=== PATIENT | male | born 2000 | race Caucasian/White ===

== ENCOUNTER 2021-12-11 12:05 | Emergency (ER) | payer OTHER ==
[~2021-12-11] VITALS: Ht 180.3 cm; Wt 105.2 kg
[2021-12-11 12:26] VITALS: BP 140/74
--- NOTE | 2021-12-11 13:32 | NUR ---
PT AMBULATED TO BED 04.
[2021-12-11 13:41] LABS: BASOPHILS % (AUTO) 0.1 % (0.0-2.0); EOSINOPHILS # (AUTO) 0.1 K/uL (0-0.4); EOSINOPHILS % (AUTO) 0.7 % (0.0-4.0); HEMATOCRIT 44.4 % (36-52); HEMOGLOBIN 15.3 g/dL (12.0-18.0); LYMPHOCYTES # (AUTO) 1.4 K/uL (2.0-11.5); LYMPHOCYTES % (AUTO) 19.7 % (20.5-51.1); MEAN CORPUSCULAR HEMOGLOBIN 33 pg (27-31); MEAN CORPUSCULAR HGB CONC 34 g/dL (33-37); MEAN CORPUSCULAR VOLUME 94.8 fL (80-94); MONOCYTES # (AUTO) 0.5 K/uL (0.8-1.0); MONOCYTES % (AUTO) 7.4 % (1.7-9.3); NEUTROPHILS # (AUTO) 5.3 K/uL (1.8-7.7); NEUTROPHILS % (AUTO) 72.1 % (42.2-75.2); PLATELET COUNT (AUTO) 423 K/uL (140-450); RED BLOOD CELL COUNT(AUTO) 4.68 MIL/uL (4.20-6.10); RED CELL DISTRIBUTION WIDTH 14.5 % (11.6-13.7); WHITE BLOOD COUNT (AUTO) 7.3 K/uL (4.8-10.8)
--- NOTE | 2021-12-11 13:55 | NUR ---
DA specimen obtained, walked to lab. Handed to CPT. Shakeel
[2021-12-11 14:01] LABS: ALBUMIN 3.7 g/dL (3.4-5.0); ANION GAP 15.7 (8-16); POTASSIUM 3.7 mmol/L (3.5-5.1); TOTAL BILIRUBIN 0.7 mg/dL (0.0-1.0)
--- NOTE | 2021-12-11 14:03 | NUR ---
Walked urine sample to lab. Handed to CPT. Shakeel
--- NOTE | 2021-12-11 14:27 | NUR ---
Patient is taken to imaging via wheelchair.
--- NOTE | 2021-12-11 15:25 | NUR ---
PT NOW C/O BLOODY DISCHARGE FROM EYE. IMANI MONTALVO MADE AWARE
[2021-12-11 16:30] VITALS: BP 178/95
--- NOTE | 2021-12-11 16:31 | NUR ---
Notified IMANI Kwong of high blood pressure. No new orders at this time.
--- NOTE | 2021-12-11 16:42 | NUR ---
Patient to wait in lobby.
--- NOTE | 2021-12-11 17:10 | NUR ---
PATIENT LEFT W/O DC WORK/INSTRUCTIONS
[2021-12-11 17:23] LABS: BARBITURATE, URINE NEGATIVE ng/ml (NEG <=200); BENZODIAZEPINE, URINE NEGATIVE ng/mL (NEG <=200); CANNABINOID, URINE NEGATIVE ng/mL (NEG <=50); COCAINE, URINE NEGATIVE ng/mL (NEG <=300); OPIATE, URINE POSITIVE ng/mL (NEG <=2000); PHENCYCLIDINE SCREEN,URINE NEGATIVE ng/mL (NEG <=25)
== END 2021-12-11 17:10 | disposition home or self-care (01) ==
LOC: MED 12:05
DX: F41.9 Anxiety disorder, unspecified (principal); Z20.822 Contact with and (suspected) exposure to COVID-19; H59.12 Intraoperative hemorrhage and hematoma of eye and adnexa complicating other procedure; R03.0 Elevated blood-pressure reading, without diagnosis of hypertension; F11.90 Opioid use, unspecified, uncomplicated
CPT/HCPCS: 36415; 71046; 80053; 80305; 84484; 85025; 85379; 93005; 99285